=== PATIENT | female | born 1980 | race African-American/Black ===

== ENCOUNTER 2017-06-17 20:17 | Emergency (ER) | payer SELFPAY ==
[2017-06-17] MEDS ORDERED: OXYCODONE-ACETAMINOPHEN 5-325 MG TABLET PO ONE (20:49)
[2017-06-17] MEDS ORDERED: PROMETHAZINE HCL 25 MG TABLET PO ONE (20:49)
--- NOTE | 2017-06-17 20:52 | ER Document Report ---
ED GI/ - General Chief Complaint: Abdominal Pain Stated Complaint: ABDOMINAL PAIN Time Seen by Provider: 06/17/17 20:41 Notes: Patient is a 37-year-old female who comes emergency department for chief complaint of 3 days of mid lower abdominal pain. She denies flank pain, chest pain. She states she has had some nausea, denies vomiting, denies change in bowel movements, denies fever. She denies dysuria, vaginal discharge or bleeding. LMP last month. She states she is not sexually active, but she had a swollen area in the vaginal area that just resolved over the past day. Only past medical history reported to me is hypertension and . She states she is out of her hypertension meds, she is unable to tell me which ones these are. TRAVEL OUTSIDE OF THE [place] IN LAST 30 DAYS: No - Related Data Allergies/Adverse Reactions: No Known Allergies Allergy (Verified 03/26/15 14:15) Past Medical History - General Information source: Patient - Social History Smoking Status: Never Smoker Frequency of alcohol use: None Drug Abuse: None Lives with: Family Family History: CAD, DM, Hypertension, Malignancy - Lung cancer - Past Medical History Cardiac Medical History: Reports: Hx Hypertension Pulmonary Medical History: Denies: Hx Tuberculosis Past Surgical History: Reports: Hx Section. Denies: Hx Pacemaker - Immunizations Hx Diphtheria, Pertussis, Tetanus Vaccination: Yes Review of Systems - Review of Systems Constitutional: No symptoms reported EENT: No symptoms reported Cardiovascular: No symptoms reported Respiratory: No symptoms reported Gastrointestinal: See HPI Genitourinary: See HPI Female Genitourinary: See HPI Musculoskeletal: No symptoms reported Skin: No symptoms reported Hematologic/Lymphatic: No symptoms reported Neurological/Psychological: No symptoms reported Physical Exam - Vital signs Vitals: Temp Pulse Resp BP Pulse Ox 98.8 F 85 20 223/95 H 97 06/17/17 20:24 06/17/17 20:24 06/17/17 20:24 06/17/17 20:24 06/17/17 20:24 Interpretation: Normal - General General appearance: Appears well, Alert In distress: None - HEENT Head: Normocephalic, Atraumatic Eyes: Normal Pupils: PERRL - Respiratory Respiratory status: No respiratory distress Chest status: Nontender Breath sounds: Normal Chest palpation: Normal - Cardiovascular Rhythm: Regular Heart sounds: Normal auscultation Murmur: No - Abdominal Inspection: Normal Distension: No distension Bowel sounds: Normal Tenderness: Nontender Organomegaly: No organomegaly - Genitourinary External exam: Other - Mildly tender around the introitus, no overt swelling, erythema, induration, or other abnormality noted. DIMITRIOS Cross present during exam. Speculum exam: Normal. No: Cervix closed, Cervix open, Vaginal discharge Vaginal bleeding: None - Back Back: Normal, Nontender. No: Tender - Extremities General upper extremity: Normal inspection, Nontender, Normal color, Normal ROM , Normal temperature General lower extremity: Normal inspection, Nontender, Normal color, Normal ROM , Normal temperature, Normal weight bearing. No: Rebecca's sign - Neurological Neuro grossly intact: Yes Cognition: Normal Orientation: AAOx4 Pavithra Coma Scale Eye Opening: Spontaneous Pavithra Coma Scale Verbal: Oriented Pavithra Coma Scale Motor: Obeys Commands [place] Coma Scale Total: 15 Speech: Normal Motor strength normal: LUE, RUE, LLE, RLE Sensory: Normal - Psychological Associated symptoms: Normal affect, Normal mood - Skin Skin Temperature: Warm Skin Moisture: Dry Skin Color: Normal Course - Re-evaluation Re-evalutation: Review of records shows that patient has a history of anemia, medication noncompliance, and she was previously on hydrochlorothiazide 25 mg, Cozaar 25 mg twice daily, Lopressor 50 mg twice daily. Patient alert, well-appearing, conversational, has mild lower abdominal tenderness on exam (suprapubic), denies flank pain, chest pain, dizziness, has good distal pulses. Her blood pressure is very elevated. Based on this presentation and exam appears to be abdominal source of pain, I do not suspect aortic dissection. CBC shows microcytic anemia, patient states she had a new about this and she is supposed to be taking iron, no leukocytosis. Chemistry generally unremarkable. Urinalysis as large leukocyte esterase and white blood cells, does have squamous epithelials, however with patient's suprapubic tenderness I discussed this with patient and agreement was made to place patient on antibiotics for urinary tract infection with Diflucan so she will not get a yeast infection. Patient has some mild soreness in the external vaginal area on exam, she does not have any Bartholin's gland cyst or abscess, she states that the swelling is gotten a lot better, she states she will routinely follow-up with [facility] in regards to this. No evidence of acute abdomen on her presentation tonight. Discussed follow-up, return precautions, patient states understanding and agreement. Patient also referred to primary care, given scripts for blood pressure medications, given first doses tonight. No headache or chest pain today. - Vital Signs Vital signs: Temp Pulse Resp BP Pulse Ox 98.6 F 81 20 197/96 H 97 06/17/17 23:24 06/17/17 23:24 06/17/17 23:24 06/17/17 23:24 06/17/17 23:24 - Laboratory Result Diagrams: 06/17/17 22:10 06/17/17 22:10 Laboratory results interpreted by me: 06/17/17 06/17/17 06/17/17 21:35 22:10 22:10 WBC 11.1 H Hgb 9.1 L Hct 29.6 L MCV 56 L MCH 17.3 L MCHC 30.8 L RDW 21.0 H Glucose 115 H Ur Leukocyte Esterase LARGE H Urine Ascorbic Acid 40 H Discharge - Discharge Clinical Impression: Lower abdominal pain, Uncontrolled hypertension Condition: Stable Disposition: HOME, SELF-CARE Additional Instructions: You are being treated for urinary tract infection. After you complete the antibiotics take the Diflucan pill to avoid yeast infection. Please take the prescribed blood pressure medications, follow-up with the referral for primary care within the next week for adjustments. Return if you worsen including fever, vomiting, worsening pain, or any other concerning symptoms. Prescriptions: Cephalexin Monohydrate [Keflex 500 mg Capsule] 500 mg PO BID #10 capsule Fluconazole [Diflucan] 150 mg PO ONCE PRN #1 tablet PRN Reason: Hydrochlorothiazide 25 mg PO DAILY #30 tablet Metoprolol Tartrate [Lopressor 50 mg Tablet] 50 mg PO Q12H #60 tablet Referrals: [facility] [Provider Group] - Follow up in 1 week [facility] [Provider Group] - Follow up in 1 week
[2017-06-17 21:53] LABS: APPEARANCE,URINE SLIGHTLY-CLOUDY; BILIRUBIN,URINE NEGATIVE (NEGATIVE); COLOR,URINE YELLOW; GLUCOSE, URINE NEGATIVE (NEGATIVE); KETONES,URINE NEGATIVE (NEGATIVE); LEUKOCYTE ESTERASE,URINE LARGE (NEGATIVE); NITRITE,URINE NEGATIVE (NEGATIVE); PROTEIN,URINE NEGATIVE (NEGATIVE); URINE SPECIFIC GRAVITY 1.015; UROBILINOGEN,URINE NEGATIVE mg/dL (<2.0)
[2017-06-17 22:22] LABS: ABSOLUTE BASOPHILS # (AUTO) 0.1 10^3/uL (0.0-0.2); ABSOLUTE EOSINOPHILS # (AUTO) 0.2 10^3/uL (0.0-0.6); ABSOLUTE LYMPHOCYTES (AUTO) 3.3 10^3/uL (0.5-4.7); ABSOLUTE MONOCYTES (AUTO) 0.6 10^3/uL (0.1-1.4); ABSOLUTE NEUT (AUTO) 6.9 10^3/uL (1.7-8.2); BASOPHILS % (AUTO) 0.6 % (0-2); EOSINOPHILS % (AUTO) 1.5 % (0-6); HEMATOCRIT 29.6 % (36.0-47.0); HEMOGLOBIN 9.1 g/dL (12.0-15.5); LYMPHOCYTES % (AUTO) 30.2 % (13-45); MEAN CORPUSCULAR HEMOGLOBIN 17.3 pg (27.0-33.4); MEAN CORPUSCULAR HGB CONC 30.8 g/dL (32.0-36.0); MONOCYTES % (AUTO) 5.5 % (3-13); PLATELET COUNT 366 10^3/uL (150-450); RED BLOOD COUNT 5.27 10^6/uL (3.72-5.28); SEGMENTED NEUTROPHILS % (AUTO) 62.2 % (42-78); TOTAL CELLS COUNTED % (AUTO) 100 %; WHITE BLOOD COUNT 11.1 10^3/uL (4.0-10.5)
[2017-06-17 22:27] LABS: MEAN CORPUSCULAR VOLUME 56 fl (80-97)
[2017-06-17 22:34] LABS: ANISOCYTOSIS 2+; PLATELET COMMENT ADEQUATE
[2017-06-17 22:36] LABS: ALANINE AMINOTRANSFERASE 20 U/L (9-52); ALKALINE PHOSPHATASE 65 U/L (38-126); ANION GAP 11 (5-19); ASPARTATE AMINO TRANSFERASE 16 U/L (14-36); BILIRUBIN,DIRECT 0.2 mg/dL (0.0-0.4); BILIRUBIN,TOTAL 0.2 mg/dL (0.2-1.3); BLOOD UREA NITROGEN 18 mg/dL (7-20); CALCIUM 9.5 mg/dL (8.4-10.2); CARBON DIOXIDE 28 mmol/L (22-30); CHLORIDE 101 mmol/L (98-107); GLUCOSE 115 mg/dL (75-110); POTASSIUM 3.6 mmol/L (3.6-5.0)
[2017-06-17 22:40] LABS: TARGET CELLS 1+
[2017-06-17 22:41] LABS: POLYCHROMASIA SLIGHT
[2017-06-17 22:42] LABS: POIKILOCYTOSIS 1+
[2017-06-17 22:43] LABS: HYPOCHROMASIA 1+
[2017-06-17] MEDS ORDERED: METOPROLOL TARTRATE 50 MG TABLET PO ONE (22:53)
[2017-06-17] MEDS ORDERED: HYDROCHLOROTHIAZIDE 25 MG TABLET PO ONE (22:54)
[2017-06-17] MEDS ORDERED: CEPHALEXIN 500 MG CAPSULE PO ONE (22:55)
[2017-06-17 23:34] VITALS: BP 197/96
--- NOTE | 2017-06-18 09:17 | EKG REPORT ---
SEVERITY:- NORMAL ECG - SINUS RHYTHM : Confirmed by: Lois Aburto 18-Jun-2017 09:16:39
== END 2017-06-17 23:38 | disposition home or self-care (01) ==
LOC: ER 20:17
DX: N39.0 Urinary tract infection, site not specified (principal); R10.2 Pelvic and perineal pain; R11.0 Nausea; I10 Essential (primary) hypertension; T50.2X6A Underdosing of carbonic-anhydrase inhibitors, benzothiadiazides and other diuretics, initial encounter; T44.7X6A Underdosing of beta-adrenoreceptor antagonists, initial encounter; T46.5X6A Underdosing of other antihypertensive drugs, initial encounter; Z91.128 Patient's intentional underdosing of medication regimen for other reason; Z91.14 Patient's other noncompliance with medication regimen; D50.9 Iron deficiency anemia, unspecified
CPT/HCPCS: 36415; 80053; 81001; 81025; 85025; 93005; 93010; 99284